=== PATIENT | male | born 1940 | race Caucasian/White ===

== ENCOUNTER → 2018-02-05 08:22 | Outpatient (CLI) | payer MEDICARE, SELFPAY ==
[2018-02-05 10:36] LABS: INR 2.2 (1.0-3.5); Prothrombin Time 21.2 sec (9.3-10.8)
== END ==
PROVIDERS: PCP Family Medicine; Visit Provider Family Medicine
DX: I82.221 Chronic embolism and thrombosis of inferior vena cava (principal); Z79.01 Long term (current) use of anticoagulants
CPT/HCPCS: 36415; 85610

== ENCOUNTER → 2018-02-22 11:44 | Outpatient (CLI) | payer MEDICARE, SELFPAY ==
[2018-02-22 12:26] LABS: INR 2.5 (1.0-3.5); Prothrombin Time 23.9 sec (9.3-10.8)
== END ==
PROVIDERS: PCP Family Medicine; Visit Provider Family Medicine
DX: I82.221 Chronic embolism and thrombosis of inferior vena cava (principal); Z79.01 Long term (current) use of anticoagulants
CPT/HCPCS: 36415; 85610

== ENCOUNTER 2018-04-05 12:03 | Outpatient (CLI) | payer MEDICARE, SELFPAY ==
[2018-04-05 13:11] LABS: INR 4.3 (1.0-3.5)
== END 2018-04-05 12:23 ==
PROVIDERS: PCP Family Medicine; Visit Provider Family Medicine
DX: I82.221 Chronic embolism and thrombosis of inferior vena cava (principal); Z79.01 Long term (current) use of anticoagulants
CPT/HCPCS: 36415; 83036; 85610

== ENCOUNTER 2018-04-11 11:01 | Outpatient (CLI) | payer MEDICARE, SELFPAY ==
[2018-04-11 11:41] LABS: Prothrombin Time 37.5 sec (9.3-10.8)
== END 2018-04-11 11:21 ==
PROVIDERS: PCP Family Medicine; Visit Provider Family Medicine
DX: I82.221 Chronic embolism and thrombosis of inferior vena cava (principal); Z79.01 Long term (current) use of anticoagulants
CPT/HCPCS: 36415; 85610

== ENCOUNTER 2018-04-17 09:54 | Outpatient (CLI) | payer MEDICARE, SELFPAY ==
[2018-04-17 10:50] LABS: Prothrombin Time 28.1 sec (9.3-10.8)
== END 2018-04-17 10:14 ==
PROVIDERS: PCP Family Medicine; Visit Provider Family Medicine
DX: I82.221 Chronic embolism and thrombosis of inferior vena cava (principal); Z79.01 Long term (current) use of anticoagulants
CPT/HCPCS: 36415; 85610

== ENCOUNTER 2018-04-23 10:50 | Outpatient (CLI) | payer MEDICARE, SELFPAY ==
[2018-04-23 11:38] LABS: INR 3.1 (1.0-3.5); Prothrombin Time 29.2 sec (9.3-10.8)
== END 2018-04-23 11:10 ==
PROVIDERS: PCP Family Medicine; Visit Provider Family Medicine
DX: I82.221 Chronic embolism and thrombosis of inferior vena cava (principal); Z79.01 Long term (current) use of anticoagulants
CPT/HCPCS: 36415; 85610

== ENCOUNTER 2018-05-11 10:22 | Outpatient (CLI) | payer MEDICARE, SELFPAY ==
[2018-05-11 11:05] LABS: INR 3.3 (1.0-3.5); Prothrombin Time 30.5 sec (9.3-10.8)
== END 2018-05-11 10:42 ==
PROVIDERS: PCP Family Medicine; Visit Provider Family Medicine
DX: I82.221 Chronic embolism and thrombosis of inferior vena cava (principal); Z79.01 Long term (current) use of anticoagulants
CPT/HCPCS: 36415; 85610

== ENCOUNTER 2022-04-27 15:55 | Outpatient (REF) | payer MEDICARE, SELFPAY ==
[2022-04-27 17:46] LABS: HCT 39.5 % (40.0-50.0); HGB 12.4 g/dL (13.5-17.5); MCH 27.3 pg (27.0-33.0); MCHC 31.4 % (32.0-36.0); MCV 87 fL (80-95); MPV 11.1 fL (8.0-11.0); Platelet Count 241 10^3/uL (130-400); RBC 4.54 10^6/uL (4.36-5.78); RDW 15.9 % (11.8-14.1); RDW-SD 50.1 fL
[2022-04-27 17:57] LABS: ALT 20 U/L (16-63); AST 20 U/L (15-37); Albumin 3.6 g/dL (3.4-5.0); Alkaline Phosphatase 151 U/L (46-116); Anion Gap 8.1 mmol/L (3-11); BUN 29 mg/dL (7-18); Bilirubin, Total 0.9 mg/dL (0.2-1.0); CO2 24.9 mmol/L (21.0-32.0); CREATININE 1.3 mg/dL (0.70-1.30); Calcium 9.3 mg/dL (8.5-10.1); Calculated LDL 145 mg/dL (<100); Chloride 107 mmol/L (98-107); Cholesterol 244 mg/dL (<200); Estimated GFR 55.88 (mL/min/1.73m2); Glucose 131 mg/dL (74-106); HDL Cholesterol 71 mg/dL (40-60); Potassium 4.4 mmol/L (3.5-5.1); Sodium 140 mmol/L (136-145); Total Protein 7.5 g/dL (6.4-8.2); Triglyceride 141 mg/dL (<150)
[2022-04-27 17:58] LABS: Hemoglobin A1C 6.1 % (<5.7)
== END 2022-04-27 15:56 | disposition home or self-care (01) ==
LOC: NCHCN 15:55
PROVIDERS: PCP Orthopaedic Surgery; Visit Provider Physician Assistant
DX: E11.9 Type 2 diabetes mellitus without complications (principal)
CPT/HCPCS: 80053; 80061; 85027; 83036

== ENCOUNTER 2022-10-25 03:07 | Outpatient (CLI) | payer MEDICARE, SELFPAY ==
[2022-10-25 11:18] LABS: Hemoglobin A1C 7.4 % (<5.7)
[2022-10-25 11:24] LABS: ALT 26 U/L (16-63); AST 22 U/L (15-37); Albumin 3.4 g/dL (3.4-5.0); Alkaline Phosphatase 112 U/L (46-116); Anion Gap 7.6 mmol/L (3-11); BUN 23 mg/dL (7-18); CO2 30.4 mmol/L (21.0-32.0); CREATININE 1.3 mg/dL (0.70-1.30); Calcium 9.4 mg/dL (8.5-10.1); Calculated LDL 164 mg/dL (<100); Chloride 105 mmol/L (98-107); Cholesterol 258 mg/dL (<200); Estimated GFR 55.53 (mL/min/1.73m2); Glucose 128 mg/dL (74-106); HDL Cholesterol 71 mg/dL (40-60); Potassium 3.9 mmol/L (3.5-5.1); Sodium 143 mmol/L (136-145); Total Protein 8.1 g/dL (6.4-8.2); Triglyceride 119 mg/dL (<150)
== END 2022-10-25 03:08 | disposition home or self-care (01) ==
PROVIDERS: PCP Orthopaedic Surgery; Visit Provider Physician Assistant
DX: E11.9 Type 2 diabetes mellitus without complications (principal)
CPT/HCPCS: 36415; 80053; 80061; 83036

== ENCOUNTER 2022-11-01 02:51 | Outpatient (CLI) | payer MEDICARE, SELFPAY ==
--- NOTE | 2022-11-01 13:30 | DI.RAD_ITS ---
Exam(s) XR HIP RT COMPLETE AP PELVIS EXAM: XR HIP RT COMPLETE AP PELVIS CLINICAL HISTORY: HIP PAIN, M25.559, H/O RT HIP FX S/P PINNING AT [facility]. TECHNIQUE: 2D digital imaging was performed. COMPARISON: DX XR PELVIS AND LAT HIP RIGHT (GENERIC) from 02/23/2022 FINDINGS: Right hip hardware is again noted across the previously described intertrochanteric fracture site. Appearance is unchanged from 02/23/2022. IMPRESSION: DATA REPOSITORY: RADIATION DOSE DELIVERED:
== END 2022-11-01 03:11 ==
LOC: DI 02:52
PROVIDERS: PCP Orthopaedic Surgery; Visit Provider Physician Assistant
DX: M25.559 Pain in unspecified hip (principal)
CPT/HCPCS: 73502

== ENCOUNTER 2022-11-18 00:54 | Outpatient (CLI) | payer MEDICARE, SELFPAY ==
--- NOTE | 2022-11-18 09:00 | DI.RAD_ITS ---
Exam(s) XR CHEST 2V PA LATERAL EXAM: XR CHEST 2V PA LATERAL CLINICAL HISTORY: SOB, R06.02 TECHNIQUE: 2D digital imaging was performed of the chest. Two images were obtained. PA and lateral views were obtained. COMPARISON: CR CHEST 2 VIEWS PA,LAT from 12/29/2014 FINDINGS: MEDIASTINUM: Normal. HEART: Normal. PULMONARY VASCULATURE: Normal. LUNGS: Clear. PLEURAL SPACE: No pleural effusion or pneumothorax. BONE:Within normal limits for the patient's age. There are old healed fracture deformities of the ri ght clavicle and several right ribs. OTHER FINDINGS:Normal. IMPRESSION: No acute pulmonary findings. DATA REPOSITORY: RADIATION DOSE DELIVERED:
== END 2022-11-18 01:14 ==
LOC: DI 00:54
PROVIDERS: PCP Orthopaedic Surgery; Visit Provider Physician Assistant
DX: R06.02 Shortness of breath (principal)
CPT/HCPCS: 71046

== ENCOUNTER 2022-11-21 00:52 | Outpatient (CLI) | payer MEDICARE, SELFPAY ==
--- NOTE | 2022-11-21 | DI.NM_ITS ---
APPROVED REPORT Exam: Pharmacologic Patient Location: Out-Patient Room/Bed: Stress Nurse: Kelsey Mckeon RN Ordering Provider:BLANK LAMAR, Contact Number: [phone] BMI: 25.76 Baseline Rhythm: Sinus Bradycardia Indications: SOB, increasing exertional dyspnea Medical History Medical History: HTN, DM, HLD, CVA x2, hx DVT Cardiac Medications: Aspirin, atorvastatin, xarelto, lisinopril, metoprolol Allergies: NKA Cardiac Risk Factors: Family Hx, HTN, HLD, diabetes Previous Cardiac Procedures: PFO closure device 17 years ago Pretest Chest Pain Characteristics: None Exercise History: Indeterminate Physical Disabilities: Hx CVA x2 Lung Sounds: Clear to auscultation Heart Sounds: Irregular, Bradycardia Stress Test Details Test: Pharmacologic stress was paired with low level exercise. Reason for pharmacologic stress test: physical limitation, patient on beta lawson. Nuclear Acquisition: Rest Tc-99m/Stress Tc-99m 1 day Rest Isotope: Tc-99m Sestamibi. Dose: 10.2 Date: 11/21/2022 Injection Time: 0945 Stress Isotope: Tc-99m Sestamibi. Dose: 32.0 Date: 11/21/2022 Injection Time: 1128 HR Resting HR Supine: 48 bpm Max Heart Rate (APMHR): 140.644383 bpm Resting HR Standin bpm Target HR (85% APMHR): 119.141445 bpm Max HR Achieved: 107 bpm % of APMHR: 76.43 Recovery HR: 57 bpm BP Resting BP Supine: 190/92 mmHg Resting BP Standin/72 mmHg Max BP: 162/82 mmHg Recovery BP: 162/82 mmHg ECG Resting ECG: Sinus Bradycardia Ectopy: Frequent PAC's, occasional PVC's Stress ECG: Sinus Tachycardia ST Change: Nondiagnostic low heart rate Arrhythmia: Frequent PAC's, occasional PVC Recovery ECG: Sinus Bradycardia Recovery ST Change: Nondiagnostic low heart rate Recovery Arrhythmia: Frequent PAC's, occasional PVC Clinical Stress Symptoms: None Angina Score: None Rate Pressure Product: 53038 Stress ECG Conclusion 1. Resting electrocardiogram showed poor R wave progression 2. Patient underwent testing using a combination of low-level exercise and pharmacologic stress with regadenoson 3. Peak heart rate achieved was 76% of predicted for age 4. The electrocardiographic portion of the test was nondiagnostic 5. See MPI report Stress Test Summary STAGE HR BP SpO2 Symptoms NOTES Supine 48 190/92 93 Standing 59 150/72 93 1 min post Lexiscan injection 100 130/68 3 min post Lexiscan injection 72 158/80 95 6 min post Lexiscan injection 57 162/82 95 MPI Conclusion Myocardial perfusion is normal. There is no ischemia or evidence of prior infarction Calculated ejection fraction is 46%. Wall motion is normal Radiologist Interpretation Radiologist Interpretation by: Gonsalo Chaudhary MD Interpretation Date/Time: 11/21/2022 17:16:09
[2022-11-21] MEDS: Regadenoson 0.4 MG/5 ML SYR IVP (11:39)
== END 2022-11-21 01:12 ==
PROVIDERS: PCP Orthopaedic Surgery; Visit Provider Physician Assistant
DX: R06.02 Shortness of breath (principal)
CPT/HCPCS: 78452; 93017; J2785

== ENCOUNTER 2022-12-30 10:18 | Outpatient (CLI) | payer MEDICARE, SELFPAY | END 2022-12-30 10:19 | disposition home or self-care (01) | PROVIDERS: PCP Orthopaedic Surgery; Visit Provider Physician Assistant | DX: R06.02 Shortness of breath (principal) | CPT/HCPCS: 93246 ==

== ENCOUNTER 2023-01-23 13:49 | Outpatient (CLI) | payer MEDICARE, SELFPAY ==
--- NOTE | 2023-01-23 15:00 | W.CARDEVENT ---
Date of service: 01/23/23 Time of Service: 15:00 Cardiac Event Recorder Referring Provider:: Sergio Mora Indications:: Shortness of breath Cardiac Event Note: This is a cardiac event monitor that was ordered for shortness of breath. Patient was monitored for 1 day During this brief period of time rhythm was sinus with an average heart rate of 65. There were rare atrial premature beats There was no atrial fibrillation, no ventricular dysrhythmias, no high-grade AV block, no pauses greater than 3 seconds
== END 2023-01-23 13:50 | disposition home or self-care (01) ==
LOC: CARDOPNVT 13:49
PROVIDERS: PCP Orthopaedic Surgery; Visit Provider Internal Medicine Cardiovascular Disease
DX: R06.02 Shortness of breath (principal)
CPT/HCPCS: 93248

== ENCOUNTER 2023-05-18 15:28 | Emergency (ER) | payer MEDICARE, SELFPAY ==
--- NOTE | 2023-05-18 15:15 | RT.EKG_ITS ---
APPROVED REPORT Exam: Resting ECG Reason for Exam: left arm numbness Patient Location: E HR:72 bpm ECG Measurements Heart Rate 72 AXIS VA 179 P 8 QRSd 96 QRS -6 QT 399 T 31 QTc 422 Conclusion Sinus rhythm...normal P axis, V-rate 60- 99 Atrial premature complexes...SV complexes w/ short R-R intvls
[2023-05-18 15:23] VITALS: BP 221/90; PULSE 78; RESP 18; O2SAT 97
--- NOTE | 2023-05-18 15:44 | NUR.NOTE ---
Nursing Note: patient answers all triage questions approp. came in to room saying her can not answer any questions without her and she did not want treated here at [facility]. She asked this RN why he was brought here. was informed that when someone calls 911 and EMS comes, that EMS has to take the patient to the nearest facility. seemed to not want to hear more about that.
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
--- NOTE | 2023-05-18 16:00 | DI.CT_ITS ---
Exam(s) CT HEAD WO EXAM: CT HEAD WO CLINICAL HISTORY: numb/tingling. TECHNIQUE: Imaging Protocol: Axial computed tomography images with coronal and sagittal reformatted images were created and reviewed COMPARISON: CT HEAD WITHOUT CONTRAST from 03/20/2016 FINDINGS: There are no skull fractures. There is no fluid in the visualized paranasal sinuses. There is no evidence of intracranial hemorrhage, new mass effect, or shift of midline structures. Th ere are no extra-axial fluid collections. The ventricles are not enlarged or shifted and there is no blood within the ventricular system nor within the basal cisterns. Again noted is a significant area of encephalomalacia in the left temporoparietal lobe, unchanged inf arct in the territory of left middle cerebral artery. There are no new areas of infarction evident. IMPRESSION: No acute intracranial findings on this noninfused CT scan of the brain. Unchanged appearance of previously described left parietal infarct. Called by myself to ER provider. RADIATION DOSE DELIVERED: Total DLP DATA REPOSITORY: All CT scans at this facility are submitted to the National Radiology Data Registry (NRDR) Dose Index Registry (DIR) with the [employer] (ACR). RADIATION OPTIMIZATION: All CT scans at this facility use at least one of these dose optimization te chniques: automated exposure control; mA and/or kV adjustment per patient size (includes targeted exa ms where dose is matched to clinical indication); or iterative reconstruction.
--- NOTE | 2023-05-18 16:00 | DI.RAD_ITS ---
Exam(s) XR CHEST 2V PA LATERAL EXAM: XR CHEST 2V PA LATERAL CLINICAL HISTORY: numb/tingling. TECHNIQUE: 2D digital imaging was performed. COMPARISON: CR XR CHEST 2V PA LATERAL from 11/18/2022 FINDINGS: 2 views: Heart size is normal. Density projected over the heart may be related to mitral valve the mediastinu m is not widened. Left lung is clear. Multiple densities in the peripheral right hemithorax are probably related to th e healing-healed multiple rib fractures. No pulmonary edema. No pleural effusions. IMPRESSION: No acute pulmonary findings.Other findings as above. DATA REPOSITORY: RADIATION DOSE DELIVERED:
--- NOTE | 2023-05-18 16:06 | NUR.NOTE ---
Nursing Note: Patient used call light stated he was cold this RN and charge nurse came to room and offered warm blanket stated he has his jacket just use that This Nurse asked patient if he wanted a warm blanket or jacket. Patient requested warm blanket. RN brought blanket patient appeared happy. This RN Asked patient if he wanted to be medical treated here at [facility] or be given a phone to call for a ride he stated very loudly that Yes I just want to get the work up here don't listen to her continued to say she wanted him treated somewhere else.
[2023-05-18 16:27] LABS: Abs Immature Grans 0.01 10^3/uL (0.0-0.06); Absolute Basophil Count 0.03 10^3/uL (0.0-0.2); Absolute Eosinophil Count 0.08 10^3/uL (0.0-0.7); Absolute Lymphocyte Count 0.66 10^3/uL (1.2-3.4); Basophils % 0.8; Eosinophils % 2.1; HGB 12.1 g/dL (13.5-17.5); Immature Grans % 0.3; Lymphocytes % 17.5; MCH 27.8 pg (27.0-33.0); MCHC 31.8 % (32.0-36.0); MCV 87 fL (80-95); MPV 10.4 fL (8.0-11.0); Monocytes % 10.6; Neutrophils % 68.7; Platelet Count 207 10^3/uL (130-400); RBC 4.35 10^6/uL (4.36-5.78); RDW 13.6 % (11.8-14.1); RDW-SD 43.7 fL; WBC 3.78 10^3/uL (4.4-10.8)
[2023-05-18 16:45] LABS: ALT 27 U/L (16-63); AST 28 U/L (15-37); Albumin 3.3 g/dL (3.4-5.0); Alkaline Phosphatase 98 U/L (46-116); Anion Gap 7.5 mmol/L (3-11); BUN 26 mg/dL (7-18); Bilirubin, Total 0.9 mg/dL (0.2-1.0); CO2 28.5 mmol/L (21.0-32.0); CREATININE 1.2 mg/dL (0.70-1.30); Calcium 9.3 mg/dL (8.5-10.1); Chloride 106 mmol/L (98-107); Estimated GFR 61.13 (mL/min/1.73m2); Glucose 164 mg/dL (74-106); Magnesium 2.1 mg/dL (1.8-2.4); Potassium 4.1 mmol/L (3.5-5.1); Sodium 142 mmol/L (136-145); Total Protein 7.6 g/dL (6.4-8.2); Troponin I < 50 ng/L (<or=60)
--- NOTE | 2023-05-18 17:33 | NUR.NOTE ---
Nursing Note: 1711 patient's hollered out of door to this RN asking for another wheel chair to sit in. This RN got another wheel chair to help the be more comfortable. stated that the chair would not be good for her. This RN offered to get a folding chair that visitors normally use. Patients declined all options. This RN reminded that if she changed her mind to let the staff know and they would be happy to help her in to another chair.
[2023-05-18 17:54] VITALS: BP 180/87; PULSE 62; RESP 18
== END 2023-05-18 18:11 | disposition home or self-care (01) ==
PROVIDERS: Emergency Provider Emergency Medicine; PCP Orthopaedic Surgery
DX: R20.2 Paresthesia of skin (principal); I49.1 Atrial premature depolarization; G93.89 Other specified disorders of brain; Z79.82 Long term (current) use of aspirin; Z86.718 Personal history of other venous thrombosis and embolism; Z86.73 Personal history of transient ischemic attack (TIA), and cerebral infarction without residual deficits
CPT/HCPCS: 80053; 93005; 99284; 70450; 71046; 83735; 84484; 85025; 93010

== ENCOUNTER 2023-09-20 15:53 | Outpatient (REF) | payer MEDICARE, SELFPAY ==
[2023-09-20 19:25] LABS: Abs Immature Grans 0.01 10^3/uL (0.0-0.06); Absolute Basophil Count 0.03 10^3/uL (0.0-0.2); Absolute Eosinophil Count 0.04 10^3/uL (0.0-0.7); Absolute Lymphocyte Count 0.68 10^3/uL (1.2-3.4); Absolute Monocyte Count 0.42 10^3/uL (0.1-0.8); Absolute Neutrophil Count 3.49 10^3/uL (1.2-6.7); Basophils % 0.6; Eosinophils % 0.9; HCT 39.7 % (40.0-50.0); HGB 12.4 g/dL (13.5-17.5); Immature Grans % 0.2; Lymphocytes % 14.6; MCH 27.6 pg (27.0-33.0); MCHC 31.2 % (32.0-36.0); MCV 88 fL (80-95); MPV 11.5 fL (8.0-11.0); Neutrophils % 74.7; Platelet Count 201 10^3/uL (130-400); RDW 14.8 % (11.8-14.1); RDW-SD 47.8 fL; WBC 4.67 10^3/uL (4.4-10.8)
[2023-09-20 19:47] LABS: ALT 29 U/L (16-63); AST 25 U/L (15-37); Albumin 3.5 g/dL (3.4-5.0); Alkaline Phosphatase 97 U/L (46-116); Anion Gap 7.8 mmol/L (3-11); BUN 28 mg/dL (7-18); Bilirubin, Total 1.1 mg/dL (0.2-1.0); CO2 29.2 mmol/L (21.0-32.0); CREATININE 1.3 mg/dL (0.70-1.30); Calcium 8.9 mg/dL (8.5-10.1); Chloride 109 mmol/L (98-107); Estimated GFR 55.19 (mL/min/1.73m2); Glucose 73 mg/dL (74-106); Magnesium 2.1 mg/dL (1.8-2.4); Potassium 4.7 mmol/L (3.5-5.1); Sodium 146 mmol/L (136-145); TSH 1.64 uIU/Ml (0.36-3.74); Total Protein 7.2 g/dL (6.4-8.2)
[2023-09-20 19:54] LABS: Hemoglobin A1C 6.5 % (<5.7)
== END 2023-09-20 15:54 | disposition home or self-care (01) ==
LOC: NCHCN 15:53
PROVIDERS: PCP Orthopaedic Surgery; Visit Provider Student in an Organized Health Care Education/Training Program
DX: E11.9 Type 2 diabetes mellitus without complications (principal)
CPT/HCPCS: 80053; 83036; 83735; 84443; 85025

== ENCOUNTER 2024-03-21 03:12 | Outpatient (CLI) | payer MEDICARE, SELFPAY ==
[2024-03-21 12:37] LABS: Abs Immature Grans 0.01 10^3/uL (0.0-0.06); Absolute Basophil Count 0.04 10^3/uL (0.0-0.2); Absolute Lymphocyte Count 0.79 10^3/uL (1.2-3.4); Absolute Monocyte Count 0.45 10^3/uL (0.1-0.8); Absolute Neutrophil Count 2.65 10^3/uL (1.2-6.7); Eosinophils % 2.5 %; HCT 39.7 % (40.0-50.0); HGB 12.4 g/dL (13.5-17.5); Immature Grans % 0.2 %; Lymphocytes % 19.6 %; MCH 28.4 pg (27.0-33.0); MCHC 31.2 % (32.0-36.0); MCV 91 fL (80-95); MPV 11.1 fL (8.0-11.0); Monocytes % 11.1 %; Neutrophils % 65.6 %; Platelet Count 180 10^3/uL (130-400); RBC 4.36 10^6/uL (4.36-5.78); RDW 14.1 % (11.8-14.1); RDW-SD 47.4 fL; WBC 4.04 10^3/uL (4.4-10.8)
[2024-03-21 12:50] LABS: ALT 30 U/L (16-63); AST 30 U/L (15-37); Albumin 3.2 g/dL (3.4-5.0); Alkaline Phosphatase 109 U/L (46-116); Anion Gap 6.1 mmol/L (3-11); BUN 22 mg/dL (7-18); Bilirubin, Total 1.26 mg/dL (0.2-1.0); CO2 27.9 mmol/L (21.0-32.0); CREATININE 1.4 mg/dL (0.70-1.30); Calcium 9.2 mg/dL (8.5-10.1); Chloride 108 mmol/L (98-107); Estimated GFR 50.49 (mL/min/1.73m2); Glucose 103 mg/dL (74-106); Potassium 4.4 mmol/L (3.5-5.1); Sodium 142 mmol/L (136-145); Total Protein 7.3 g/dL (6.4-8.2)
== END 2024-03-21 03:13 | disposition home or self-care (01) ==
LOC: LOS 03:12
PROVIDERS: PCP Orthopaedic Surgery; Visit Provider Student in an Organized Health Care Education/Training Program
DX: E11.9 Type 2 diabetes mellitus without complications (principal); D64.9 Anemia, unspecified
CPT/HCPCS: 36415; 80053; 83036; 85025

== ENCOUNTER 2024-03-22 12:29 | Outpatient (CLI) | payer MEDICARE, SELFPAY ==
--- NOTE | 2024-03-22 | DI.US_ITS ---
Exam(s) US LOWER EXTREMITY VENOUS LT EXAM: US LOWER EXTREMITY VENOUS LT CLINICAL HISTORY: LT LEG EDEMA, H/O THROMBOEMBOLISM,? DVT. TECHNIQUE: Lower extremity venous ultrasound performed using grayscale, color-flow, and spectral Do ppler analysis. COMPARISON: No exams were available for comparison FINDINGS: The common femoral, femoral and popliteal veins demonstrate occlusive thrombus. The posterior tibial veins are patent. No saphenous vein thrombosis or other superficial venous thrombosis is seen. The re is a Garcia's cyst measuring 4.2 x 1.1 x 3.3 cm. IMPRESSION: Deep venous thrombosis extending from the common femoral vein through the popliteal vein. The posteri or tibial veins and greater saphenous vein are free of thrombus. Small Garcia cyst. DATA REPOSITORY:
--- NOTE | 2024-03-22 | DI.RAD_ITS ---
Exam(s) XR CHEST 2V PA LATERAL EXAM: XR CHEST 2V PA LATERAL CLINICAL HISTORY: COUGH,R05.9 TECHNIQUE: 2D digital imaging was performed. Two views. COMPARISON: CR XR CHEST 2V PA LATERAL from 05/18/2023 FINDINGS: HEART: Mildly enlarged. Aorta: Not dilated. PULMONARY VASCULATURE: Normal. MEDIASTINUM: Unremarkable. LUNGS: Clear. PLEURAL SPACE: No pleural effusion or pneumothorax. BONE:Unremarkable multiple old right rib fractures. SOFT TISSUES: Unremarkable. IMPRESSION: No acute abnormality. DATA REPOSITORY: RADIATION DOSE DELIVERED:
== END 2024-03-22 12:49 ==
PROVIDERS: PCP Orthopaedic Surgery; Visit Provider Student in an Organized Health Care Education/Training Program
DX: I82.533 Chronic embolism and thrombosis of popliteal vein, bilateral (principal); R05.9 Cough, unspecified
CPT/HCPCS: 36415; 80048; 85027; 85652; 71046; 85379; 86140; 93971

== ENCOUNTER 2024-03-22 12:44 | Outpatient (CLI) | payer MEDICARE, SELFPAY ==
[2024-03-22 12:53] LABS: HCT 39.1 % (40.0-50.0); HGB 12.5 g/dL (13.5-17.5); MCH 28.6 pg (27.0-33.0); MCV 90 fL (80-95); MPV 9.9 fL (8.0-11.0); Platelet Count 192 10^3/uL (130-400); RBC 4.37 10^6/uL (4.36-5.78); RDW 14.1 % (11.8-14.1); RDW-SD 46.1 fL
[2024-03-22 12:55] LABS: ESR 8 mm/hr (0-20)
[2024-03-22 13:32] LABS: D-Dimer 2865 ng/mlFEU (<500)
[2024-03-22 13:47] LABS: Anion Gap 6.1 mmol/L (3-11); BUN 22 mg/dL (7-18); CO2 29.9 mmol/L (21.0-32.0); CREATININE 1.3 mg/dL (0.70-1.30); Calcium 9.2 mg/dL (8.5-10.1); Chloride 106 mmol/L (98-107); Estimated GFR 55.19 (mL/min/1.73m2); Glucose 68 mg/dL (74-106); Potassium 4.2 mmol/L (3.5-5.1); Sodium 142 mmol/L (136-145)
[2024-03-22 13:51] LABS: C-Reactive Protein < 0.50 mg/dL (<or=0.5)
== END 2024-03-22 12:45 | disposition home or self-care (01) ==
LOC: LBO 12:45
PROVIDERS: PCP Orthopaedic Surgery; Visit Provider Student in an Organized Health Care Education/Training Program
DX: R60.0 Localized edema (principal)
CPT/HCPCS: 36415; 80048; 85027; 85652; 85379; 86140

== ENCOUNTER 2024-03-23 11:50 | Emergency (ER) | payer MEDICARE, SELFPAY ==
[2024-03-23 11:54] VITALS: BP 198/63; PULSE 55; RESP 16; TEMP 36.5; O2SAT 94
--- NOTE | 2024-03-23 12:15 | DI.CT_ITS ---
Exam(s) CT CHEST PE CTA EXAM: CT CHEST PE CTA CLINICAL HISTORY: L LE clot on thinners, coughing. TECHNIQUE: Imaging Protocol: CT angiography of the chest was performed using pulmonary embolus ariella col. Multi planar reconstructions were performed. CONTRAST MATERIAL: Intravenous: Omnipaque 350 Contrast volume: 100 cc COMPARISON: CR XR CHEST 2V PA LATERAL from 03/22/2024 FINDINGS: CHEST: PULMONARY ARTERIES: There are no intraluminal filling defects to suggest acute pulmonary emboli. LUNGS: There is mild pleural based infiltrate over the lateral aspect of the right upper/right middle lobes. This is below the level of multiple healed right-sided rib fractures. There is no overlying rib destruction. No infiltrates evident in the opposite-left lung. No pleural effusions evident. No findings in the trachea and mainstem bronchi. MEDIASTINUM: There is no hilar nor mediastinal adenopathy. Visualized thyroid unremarkable. CARDIAC: Heart size is upper normal. There is no pericardial effusion.Caliber of the thoracic aorta is within normal limits. No evidence of dissection. There is no significant shift of the interventri cular septum. PARTIALLY VISUALIZED UPPERMOST ABDOMEN: No obvious findings OSSEOUS: There healed fracture of the of the right 4th, 5th, and 6th ribs. No acute appearing fractu res identified in the ribs and sternum. No acute vertebral fractures.. IMPRESSION: 1. No evidence of acute pulmonary emboli. No evidence of pulmonary infarction.No pleural effusions. 2. There is mild pleural based infiltrate in the lateral right lung involving the lateral segment of the right middle lobe. This is just below the area of healed fractures of the right 4th through 6th ribs. There is no pleural effusion nor pneumothorax. Above infiltrate requires repeat CT imaging in 3 months to ensure stability or regression. There is a possibly that this may be related to the ruth rby healed right rib fractures although this lung finding is not directly adjacent to the healed rib fractures. RADIATION DOSE DELIVERED: 66.29mGy.cm Total DLP DATA REPOSITORY: All CT scans at this facility are submitted to the National Radiology Data Registry (NRDR) Dose Index Registry (DIR) with the [employer] (ACR). RADIATION OPTIMIZATION: All CT scans at this facility use at least one of these dose optimization te chniques: automated exposure control; mA and/or kV adjustment per patient size (includes targeted exa ms where dose is matched to clinical indication); or iterative reconstruction.
--- NOTE | 2024-03-23 12:15 | RT.EKG_ITS ---
APPROVED REPORT Exam: Resting ECG Reason for Exam: baseline/screening Patient Location: E HR:61 bpm ECG Measurements Heart Rate 61 AXIS VT 198 P 9 QRSd 98 QRS 26 QT 466 T 15 QTc 444 Conclusion Sinus rhythm...normal P axis, V-rate 60- 99 Atrial premature complexes...SV complexes w/ short R-R intvls Narrow complex normal sinus rhythm at a rate of 61. Normal axis. Intervals within normal limits. P ACs. No acute injury pattern. Compared to prior dated last year T wave amplitude in left lateral ch est wall leads has decreased.
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
[2024-03-23 12:49] LABS: Abs Immature Grans 0.01 10^3/uL (0.0-0.06); Absolute Basophil Count 0.03 10^3/uL (0.0-0.2); Absolute Lymphocyte Count 0.51 10^3/uL (1.2-3.4); Absolute Monocyte Count 0.49 10^3/uL (0.1-0.8); Absolute Neutrophil Count 2.81 10^3/uL (1.2-6.7); Basophils % 0.8 %; Eosinophils % 2.5 %; HCT 39.6 % (40.0-50.0); HGB 12.4 g/dL (13.5-17.5); Immature Grans % 0.3 %; Lymphocytes % 12.9 %; MCH 28.3 pg (27.0-33.0); MCHC 31.3 % (32.0-36.0); MCV 90 fL (80-95); Monocytes % 12.4 %; Neutrophils % 71.1 %; Platelet Count 166 10^3/uL (130-400); RBC 4.38 10^6/uL (4.36-5.78); RDW 14.2 % (11.8-14.1); RDW-SD 47.4 fL; WBC 3.95 10^3/uL (4.4-10.8)
[2024-03-23 13:06] LABS: INR 1.1 (0.9-1.1); PTT Activated 23.2 sec (23.6-32.8); Prothrombin Time 10.9 sec (9.1-11.1)
[2024-03-23 13:14] LABS: ALT 33 U/L (16-63); AST 36 U/L (15-37); Albumin 3.4 g/dL (3.4-5.0); Alkaline Phosphatase 121 U/L (46-116); Anion Gap 5.3 mmol/L (3-11); BUN 20 mg/dL (7-18); Bilirubin, Total 1.47 mg/dL (0.2-1.0); CO2 31.7 mmol/L (21.0-32.0); CREATININE 1.3 mg/dL (0.70-1.30); Calcium 8.7 mg/dL (8.5-10.1); Chloride 105 mmol/L (98-107); Estimated GFR 55.19 (mL/min/1.73m2); Glucose 62 mg/dL (74-106); NT-proBNP 689 pg/mL (<300); Potassium 4.2 mmol/L (3.5-5.1); Sodium 142 mmol/L (136-145); Total Protein 7.8 g/dL (6.4-8.2); Troponin I 11 ng/L (<or=76)
[2024-03-23] MEDS: Normal Saline - Diluent 50 ML VIAL IJ (13:26)
[2024-03-23] MEDS: Omnipaque 350 MG/ML 100 ML BTL IJ (13:28)
--- NOTE | 2024-03-23 14:18 | DI.VRAD_ITS ---
PROCEDURE INFORMATION: Exam: CTA Chest With Contrast Exam date and time: 03/23/2024 1:25 PM Age: 83 years old Clinical indication: Other: L le clot on thinners, coughing TECHNIQUE: Imaging protocol: Computed tomographic angiography of the chest with contrast. Exam focused on the arteries. 3D rendering (Not supervised by radiologist): MIP and/or 3D reconstructed images were created by the technologist. Radiation optimization: All CT scans at this facility use at least one of these dose optimization techniques: automated exposure control; mA and/or kV adjustment per patient size (includes targeted exams where dose is matched to clinical indication); or iterative reconstruction. Contrast material: OMNI 350; Contrast volume: 100 ml; Contrast route: INTRAVENOUS (IV); COMPARISON: CR XR CHEST 2V PA LATERAL 22/03/2024 12:57 FINDINGS: Pulmonary arteries: Streak artifact through the segmental pulmonary arteries of the right and left lower lobes. No large pulmonary artery filling defect. Aorta: Unremarkable. No aortic aneurysm. No aortic dissection. Other arteries: Atherosclerotic disease. Lungs: Peripheral reticular markings involving the lateral aspect of the right lung base consistent with scar near the previous rib fractures. Pleural spaces: Unremarkable. No pneumothorax. No pleural effusion. Heart: Cardiomegaly. Coronary arteries: Mild calcification of coronary arteries. Lymph nodes: Unremarkable. No enlarged lymph nodes. Diaphragm: Hiatal hernia. Bones/joints: Age indeterminate right lateral rib there is a 3rd - 6th fractures again noted. Multilevel degenerative changes of the spine. Decreased bone mineralization. Soft tissues: Unremarkable. IMPRESSION: No acute findings. Dictated and Authenticated by: Yaima Mendiola MD. Ordering:ABDIRASHID Kennedy MD
[2024-03-23] MEDS: Enoxaparin 120 MG/0.8 ML SYR 137.5 MG SC (15:34)
[2024-03-23 15:44] VITALS: BP 180/64; PULSE 77; RESP 22; TEMP 36.8; O2SAT 96
--- NOTE | 2024-03-24 10:27 | NUR.NOTE ---
Nursing Note: [facility] pharmacist called to discuss the dosing for the enoxaparin prescribed yesterday. Phone call transfered to provider.
== END 2024-03-23 16:03 | disposition home or self-care (01) ==
PROVIDERS: Emergency Provider Physician Assistant; PCP Orthopaedic Surgery
DX: R22.42 Localized swelling, mass and lump, left lower limb (principal); M71.22 Synovial cyst of popliteal space [Baker], left knee; Z86.718 Personal history of other venous thrombosis and embolism; Z79.01 Long term (current) use of anticoagulants; Z79.82 Long term (current) use of aspirin
CPT/HCPCS: 36415; 71275; 80053; 93005; 96372; 99285; 83880; 84484; 85025; 85610; 85730; 93010; 99284; J1650; J3490

== ENCOUNTER 2024-05-29 11:45 | Outpatient (CLI) | payer MEDICARE, SELFPAY ==
[2024-05-29 11:09] LABS: Abs Immature Grans 0.02 10^3/uL (0.0-0.06); Absolute Basophil Count 0.02 10^3/uL (0.0-0.2); Absolute Eosinophil Count 0.09 10^3/uL (0.0-0.7); Absolute Lymphocyte Count 0.87 10^3/uL (1.2-3.4); Absolute Monocyte Count 0.54 10^3/uL (0.1-0.8); Absolute Neutrophil Count 3.48 10^3/uL (1.2-6.7); Basophils % 0.4 %; Eosinophils % 1.8 %; HCT 40.7 % (40.0-50.0); HGB 12.7 g/dL (13.5-17.5); Immature Grans % 0.4 %; Lymphocytes % 17.3 %; MCHC 31.2 % (32.0-36.0); MCV 90 fL (80-95); MPV 10.4 fL (8.0-11.0); Monocytes % 10.8 %; Neutrophils % 69.3 %; Platelet Count 187 10^3/uL (130-400); RBC 4.54 10^6/uL (4.36-5.78); RDW 14.5 % (11.8-14.1); RDW-SD 47.8 fL; WBC 5.02 10^3/uL (4.4-10.8)
[2024-06-03 15:37] LABS: HIV-1/2 Ag & Ab Screen Reactive (Negative)
[2024-06-03 15:56] LABS: Albumin 54.7 % (55.8-66.1); Immunotyping, Serum (See Note); Total Protein 7.3 g/dL (6.3-8.2)
[2024-06-04 13:53] LABS: HIV 1 Ab Diff Negative (Negative); HIV 1&2 Ab Final Interpret HIV Negative; HIV 2 Ab Diff Negative (Negative)
== END 2024-05-29 11:46 | disposition home or self-care (01) ==
LOC: LBO 11:45
PROVIDERS: PCP Orthopaedic Surgery; Visit Provider Student in an Organized Health Care Education/Training Program
DX: D72.810 Lymphocytopenia (principal)
CPT/HCPCS: 36415; 86701; 86702; 87389; 84155; 84165; 85025; 86320

== ENCOUNTER 2024-06-13 13:43 | Outpatient (CLI) | payer MEDICARE, SELFPAY ==
[2024-06-17 14:59] LABS: HIV 1 RNA Qualitative Undetected Copys/mL (Undetected)
== END 2024-06-13 13:44 | disposition home or self-care (01) ==
LOC: LBO 13:48
PROVIDERS: PCP Orthopaedic Surgery; Referring Provider Student in an Organized Health Care Education/Training Program; Visit Provider Student in an Organized Health Care Education/Training Program
DX: Z11.4 Encounter for screening for human immunodeficiency virus [HIV] (principal)
CPT/HCPCS: 36415; 87536

== ENCOUNTER 2024-08-22 13:01 | Outpatient (REF) | payer MEDICARE, SELFPAY ==
[2024-08-22 16:35] LABS: COMMENT (LAB VIEW ONLY) 38.19 mg/dL; Microalb ug/mg Crea 9.2 ug/mg Cr
== END 2024-08-22 13:02 | disposition home or self-care (01) ==
LOC: NCHCN 13:01
PROVIDERS: PCP Orthopaedic Surgery; Visit Provider Student in an Organized Health Care Education/Training Program
DX: E11.9 Type 2 diabetes mellitus without complications (principal)
CPT/HCPCS: 82043; 82570

== ENCOUNTER 2025-01-09 01:14 | Outpatient (CLI) | payer MEDICARE, SELFPAY ==
--- NOTE | 2025-01-09 12:30 | DI.US_ITS ---
APPROVED REPORT EXAM: Comprehensive 2D, Doppler, and color-flow Echocardiogram Patient Location: Out-Patient Supervisor [employer]: Ching Auguste RDCS (AE) Indications: SOB on exertion, Atrial septal defect repaired in 2003, Abnormal EKG Other Information Study Quality: Good Conclusion Normal left ventricular wall thickness and chamber size. Ejection fraction is 60%. Wall motion is normal Normal right ventricular size and function Both atria are normal in size Aortic valve is mildly sclerotic and trileaflet with trace regurgitation Normal mitral valve with mild regurgitation Estimated right ventricular systolic pressure is 28 mmHg Ascending aorta measures 3.7 cm Wall motion Left Ventricle The left ventricle is normal size. The left ventricular systolic function is normal. The left ventricular ejection fraction is within the normal range. There is normal left ventricular wall thickness. There is normal LV segmental wall motion. There is no ventricular septal defect visualized. LVEF is 60%. Right Ventricle The right ventricle is normal size. The right ventricular systolic function is normal. Atria The left atrium size is normal. The right atrium size is normal. The interatrial septum is intact with no evidence for an atrial septal defect. Aortic Valve The Aortic valve is mildly sclerotic. Aortic valve is trileaflet. There is no aortic valvular stenosis. Trace aortic regurgitation. Mitral Valve The mitral valve is normal in structure. No evidence of mitral valve stenosis. Mild mitral regurgitation. Tricuspid Valve The tricuspid valve is normal in structure. There is no tricuspid valve stenosis. Trace tricuspid regurgitation. The RVSP is 28.4 mmHg. Pulmonic Valve The pulmonary valve is normal in structure. There is no pulmonic valvular stenosis. Trace pulmonic regurgitation. Great Vessels The aortic root is normal in size. The ascending aorta is mildly dilated. Aortic arch is normal in caliber. IVC is normal in size and collapses >50% with inspiration. Pericardium There is no pericardial effusion. 2D Dimensions IVSD d PLAX 0.91 cm M: 0.6-1.2 Ao Root d 3.57 cm M: 3.1 - 3.7 LVPW d PLAX 0.95 cm M: 0.6 - 1.2 Ao Asc Diam d 3.70 cm M: 2.6 - 3.4 LVID d PLAX 5.65 cm M: 4.2 - 5.8 LVDs 3.82 cm M: 2.5 - 4.0 LV EF Teichholz 60.0 % FS 32.36 % LV EDV (Teich) 156.7 mL LV ESV (Teich) 62.7 mL M-Mode TAPSE 2.17 cm (M/F) >1.7 Auto EF LV EDV A4C 94.9 mL LV EDV A2C 143.4 mL LV EDV BP 116.5 mL LV ESV A4C 38.0 mL LV ESV A2C 57.7 mL LV ESV BP 47.4 mL LVEF(%) A4C 59.9 % LVEF(%) A2C 59.8 % LVEF(%) BP 59.3 % LV SV A4C 56.9 ml LV SV A2C 85.7 ml LV SV BP 69.1 ml LV CO A4C 2.8 L/min LV CO A2C 4.7 L/min LV CO BP 3.7 L/min HR A4C 48.92 BPM HR A2C 54.38 BPM LV EDV Index (BP) LA Volume LA Length A4C 4.3 cm LA Length A2C 5.1 cm LA Area A4C s 13.02 cm2 LA Area A2C s 15.85 cm2 LA Vol A4C A-L 33.44 mL LA Vol A2C A-L 41.93 mL LA Vol Biplane A-L 40.7 mL LA Vol/BSA A4C A-L LA Vol/BSA A2C A-L LA Vol/BSA BP A-L 19.3 mL/m2 LA Vol A4C MOD 29.7 mL LA Vol A2C MOD 39.2 mL LA Vol BP MOD 36.8 mL RA Volume RA Area A4C 11.2 cm2 RA ESV A4C (A-L) 28.1mL RA Vol/BSA A4C A-L RA Length A4C 3.8 cm RA ESV A4C (MOD) 26.5mL LV Diastology MV E' medial 0.062 (>0.07 m/s) MV E Vmax 0.54 (0.4-1.3 m/s) MV E/E' MED 8.71 (<14) MV A Vmax 0.70 (0.4-1.3 m/s) MV E' lateral 0.134 (>0.1 m/s) E/A Ratio 0.8 MV E/E' LAT 4.01 (<14) MV E' Average 0.098 m/s MV E/E'(average) 5.49 Aortic Valve AoV Vmax 1.69 m/s LVOT Vmax 1.26 m/s AoV Peak Grad 31.5 mmHg LVOT Peak Grad 6.4 mmHg AoV Area (Vmax) 2.35 cm2 LVOT VTI 0.279 m AoV VTI 0.393 m LVOT Mean Grad 3.2 mmHg AoV Mean Kwesi. 1.12 m/s LVOT SV 87.76 mL AoV Mean Grad 5.9 mmHg LVOT Diam s 2.00 cm AoV Area (VTI) 2.23 cm2 AV Regurg Peak Gr. 11.43 mmHg Velocity Ratio 0.75 AR Decel Gregg 1.2m/sec2 AR DT 3031 msec AR PHT 879 msec AR Vmax 3.59 m/s Mitral Valve MV DT 309 (160-240 msec) MV Vmax TIPS 0.75 m/s MV Mean Grad 0.8 (<2mmHg) MV VTI 0.273 m Pulmonary Valve PV Vmax 1.15 (0.5-1.5 m/s) RVOT Vmax 0.68 m/s PV Peak Grad 5.3 mmHg RVOT Peak Gr. 1.9 mmHg PV Mean Kwesi 0.66 m/s RVOT VTI 0.182 m PV Mean Grad 2.1 mmHg RVOT Mean Gr. 1.0 mmHg Tricuspid Valve RA Pressure 3.00 mmHg TR Vmax 2.52 m/s TV S' 0.13 m/s TR Peak Grad 25.4 mmHg RVSP (TR) 28.4 mmHg
== END 2025-01-09 01:34 ==
LOC: DI 01:14
PROVIDERS: PCP Orthopaedic Surgery; Visit Provider Internal Medicine Cardiovascular Disease
DX: R06.02 Shortness of breath (principal)
CPT/HCPCS: 93306

== ENCOUNTER 2025-03-05 15:18 | Outpatient (REF) | payer MEDICARE, SELFPAY ==
[2025-03-05 16:07] LABS: Abs Immature Grans 0.01 10^3/uL (0.0-0.06); HCT 40.0 % (40.0-50.0); HGB 12.7 g/dL (13.5-17.5); Immature Grans % 0.2 %; MCH 28.8 pg (27.0-33.0); MCHC 31.8 % (32.0-36.0); MCV 91 fL (80-95); MPV 11.3 fL (8.0-11.0); Platelet Count 194 10^3/uL (130-400); RBC 4.41 10^6/uL (4.36-5.78); RDW 13.8 % (11.8-14.1); RDW-SD 46.2 fL; WBC 5.16 10^3/uL (4.4-10.8)
[2025-03-05 17:07] LABS: ALT 34 U/L (16-63); AST 28 U/L (15-37); Albumin 3.4 g/dL (3.4-5.0); Alkaline Phosphatase 76 U/L (46-116); Anion Gap 7.8 mmol/L (3-11); BUN 26 mg/dL (7-18); Bilirubin, Total 1.2 mg/dL (0.2-1.0); CO2 28.2 mmol/L (21.0-32.0); Calcium 9.0 mg/dL (8.5-10.1); Chloride 108 mmol/L (98-107); Estimated GFR 54.85 (mL/min/1.73m2); Glucose 147 mg/dL (74-106); Potassium 4.5 mmol/L (3.5-5.1); Sodium 144 mmol/L (136-145); Total Protein 6.9 g/dL (6.4-8.2)
[2025-03-05 17:32] LABS: Hemoglobin A1C 6.5 % (<5.7)
== END 2025-03-05 15:19 | disposition home or self-care (01) ==
LOC: NCHCN 15:18
PROVIDERS: PCP Student in an Organized Health Care Education/Training Program; Visit Provider Student in an Organized Health Care Education/Training Program
DX: E11.9 Type 2 diabetes mellitus without complications (principal); I95.9 Hypotension, unspecified
CPT/HCPCS: 80053; 83036; 85025